=== PATIENT | male | born 1955 | race Caucasian/White ===

== ENCOUNTER 2017-03-31 05:51 | Day surgery (SDC) | payer OTHER ==
[~2017-03-31] VITALS: Ht 167.6 cm; Wt 68.2 kg
[~2017-03-31 05:51] MED LIST: SODIUM CHLORIDE 0.9% 1,000 ML IV ONE
[2017-03-31] MEDS ORDERED: LIDOCAINE HCL 2% 5 ML JELLY TP ONE (05:52)
[2017-03-31] MEDS ORDERED: BENZOCAINE 20% 50 MCG/SPRAY 57 GM TP ONE (05:52)
[2017-03-31] MEDS ORDERED: LIDOCAINE HCL 4% 50 ML SOLUTION TP ONE (05:52)
[2017-03-31] MEDS ORDERED: SODIUM CHLORIDE 0.9% 1,000 ML IV ONE (06:00)
[2017-03-31] MEDS ORDERED: ALBU90AE PO (06:39)
[2017-03-31] MEDS ORDERED: EMTR1TAB13 PO (06:39)
[2017-03-31] MEDS ORDERED: BECL8.7A7 PO (06:39)
[2017-03-31] MEDS ORDERED: MULT1TAB70 PO (06:39)
[2017-03-31] MEDS ORDERED: ETHA400T8 PO (06:39)
[2017-03-31] MEDS ORDERED: DOLU50TA PO (06:39)
[2017-03-31] MEDS ORDERED: RIFAB150 PO (06:39)
[2017-03-31] MEDS ORDERED: MONT10TA21 PO (06:39)
[2017-03-31] MEDS ORDERED: OMEP20 PO (06:39)
[2017-03-31] MEDS ORDERED: FLUT16H NASAL (06:39)
[2017-03-31] MEDS ORDERED: FERR324T4 PO (06:39)
[2017-03-31] MEDS ORDERED: MIDAZOLAM HCL 2 MG/2 ML VIAL ONE (07:50)
[2017-03-31] MEDS ORDERED: FentaNYL CITRATE-PF 100 MCG/2 ML VIAL ONE (07:50)
[2017-03-31] MEDS ORDERED: MethylPREDNISolone SOD SUCC 125 MG/2 ML VIAL IVP ONE ×2 (08:45→09:30)
[2017-03-31] MEDS ORDERED: MethylPREDNISolone SOD SUCC 125 MG/2 ML VIAL ONE (09:38)
[2017-03-31] MEDS ORDERED: OXYGEN THERAPY IH SCH (20:00)
== END 2017-03-31 10:30 | disposition home or self-care (01) ==
LOC: SURGERY 05:51
PROVIDERS: ATTEND Internal Medicine Critical Care Medicine
DX: J38.4 Edema of larynx (principal); B37.0 Candidal stomatitis; F17.210 Nicotine dependence, cigarettes, uncomplicated; F10.21 Alcohol dependence, in remission; Z98.890 Other specified postprocedural states; Z98.49 Cataract extraction status, unspecified eye
CPT/HCPCS: 31623; 31624; 71010; 87015 ×2; 87070; 87101; 87205; 87220; 88108; 88312; 94640; J2250; J2930; J3010; J7030